=== PATIENT | female | born 1995 | race Caucasian/White ===

== ENCOUNTER 2021-05-16 22:20 | Emergency (ER) | payer BC ==
[~2021-05-16 22:20] MED LIST: KEFLEX CAP 500500 MG PO; NAPROSYN500 MG PO; NORCO 7.5-3251 EACH PO; ONDANSETRON ODT4 MG PO
[2021-05-16 23:23] LABS: HEMOGLOBIN 14.6 gm/dl (12.3-15.3); RED BLOOD COUNT 4.62 M/UL (4.00-5.10); WHITE BLOOD COUNT 11.7 K/UL (4.5-11.0)
[2021-05-16 23:40] LABS: BUN/CREATININE RATIO 25 (0-10)
[2021-05-17] MEDS ORDERED: PHENERGAN 12.12.5 M1 PO (02:32)
== END 2021-05-17 02:50 | disposition home or self-care (01) ==
LOC: ER1 22:20
PROVIDERS: Physician Assistant
DX: K58.9 Irritable bowel syndrome, unspecified (principal)
CPT/HCPCS: 80053; 83690; 85025; 96374; 96375; 99284; J2270; J2405; J2550; Q9967